=== PATIENT | male | born 1985 | race African-American/Black ===

== ENCOUNTER 2024-04-25 00:25 | Emergency (ER) | payer OTHER ==
[2024-04-25 00:38] VITALS: BP 123/75; PULSE 62; RESP 16; TEMP 97.6; BMI 32.6
== END 2024-04-25 01:03 | disposition home or self-care (01) ==
LOC: FER 00:25
DX: S96.911A Strain of unspecified muscle and tendon at ankle and foot level, right foot, initial encounter (principal); X50.1XXA Overexertion from prolonged static or awkward postures, initial encounter; Y93.01 Activity, walking, marching and hiking
CPT/HCPCS: 99283-25